=== PATIENT | male | born 1990 | race Two or more races ===

== ENCOUNTER 2017-10-11 09:08 | Emergency (ER) | payer OTHER ==
[~2017-10-11] VITALS: Ht 165.1 cm; Wt 61.2 kg
[2017-10-11] MEDS ORDERED: Surgicel 4in x 8in TOPIC ONE ×3 (09:21→12:15)
[2017-10-11] MEDS ORDERED: Tranexamic Acid 1,000 MG in NS 110 ML IVPB SCH (10:10)
[2017-10-11] MEDS ORDERED: NS TOPIC SCH (10:15)
[2017-10-11] MEDS ORDERED: TRANEXAMIC ACID TOPIC SCH (10:15)
--- NOTE | 2017-10-11 10:46 | Emergency Room Report ---
History of Present Illness General Chief Complaint: Laceration Source: Patient Present Illness HPI 26-year-old male walks in with laceration to left thumb Patient was at work wearing gloves cutting vegetables states accidentally cut off tip of left thumb Tetanus updated 2 years ago Patient states uncontrollable bleeding from site of avulsion laceration No other injury Allergies: Coded Allergies: No Known Allergies (Unverified , 10/11/17) Patient History Past Medical History: none Past Surgical History: none Pertinent Family History: none Social History: Denies: smoking, alcohol use, drug use Immunizations: UTD Reviewed Nursing Documentation: PMH: Agreed, PSxH: Agreed Nursing Documentation-PMH Past Medical History: No Stated History Review of Systems All Other Systems: negative except mentioned in HPI Physical Exam Vital Signs Date Time Temp Pulse Resp B/P (MAP) Pulse Ox O2 Delivery O2 Flow Rate FiO2 10/11/17 09:12 54 14 100 Room Air Sp02 EP Interpretation: reviewed, normal General Appearance: normal inspection, well appearing, no apparent distress, alert Head: atraumatic ENT: normal ENT inspection, hearing grossly normal, normal voice Neck: normal inspection, full range of motion, supple, no bony tend Respiratory: normal inspection, lungs clear, normal breath sounds, no respiratory distress, no retraction, no wheezing Cardiovascular #1: regular rate, rhythm, no edema Gastrointestinal: normal inspection, normal bowel sounds, non tender, soft, no guarding, no hernia Genitourinary: no CVA tenderness Musculoskeletal: normal inspection, back normal, normal range of motion, Jaxon' s Sign negative, other - left thumb: avulsion of distal tip with area of oozing blood Neurologic: normal inspection, alert, oriented x3, responsive, instructor product inspection III-XII nml as tested, speech normal Psychiatric: normal inspection, judgement/insight normal, mood/affect normal Skin: normal inspection, normal color, no rash Lymphatic: normal inspection Medical Decision Making Diagnostic Impression: Primary Impression: Avulsion of skin of left thumb Qualified Codes: S61.002A - Unspecified open wound of left thumb without damage to nail, initial encounter ER Course Avulsion laceration of left thumb, bleeding controlled with direct pressure and Surgicel and topical TXA. Wound bandaged with clean gauze Tetanus previously up-to-date Advised to keep clean and dry for 24-48 hours, and daily dressing changes ER course: Patient has remained stable during ED stay. Patient is to be discharged to home. Patient is instructed to follow up with their primary care doctor within 5 days. Strict return precautions discussed with patient such as fever, chills, worsening/severe pain, nausea, vomiting, which may indicate severe illness. Patient verbalizes understanding and agrees with plan. Please note that this Emergency Department Report was dictated using [employer]as programmer technology software, occasionally this can lead to erroneous entry secondary to interpretation by the dictation equipment Last Vital Signs Date Time Temp Pulse Resp B/P (MAP) Pulse Ox O2 Delivery O2 Flow Rate FiO2 10/11/17 09:12 54 14 100 Room Air Status: improved Disposition: HOME, SELF-CARE Scripts No Active Prescriptions or Reported Meds Referrals: NON PHYSICIAN (PCP) SJ SANDERS M.D. Oct 11, 2017 10:46
[2017-10-11 12:59] VITALS: BP 100/65
== END 2017-10-11 13:05 | disposition home or self-care (01) ==
LOC: EMR 09:48
DX: S61.012A Laceration without foreign body of left thumb without damage to nail, initial encounter (principal); W26.0XXA Contact with knife, initial encounter; Y92.512 Supermarket, store or market as the place of occurrence of the external cause; Y99.0 Civilian activity done for income or pay
CPT/HCPCS: 99283